=== PATIENT | male | born 1950 | race Caucasian/White ===

== ENCOUNTER 2023-10-17 08:58 | Day surgery (SDC) | payer MEDICARE, OTHER, SELFPAY ==
[2023-10-03 11:33] VITALS: BMI 26.6
--- NOTE | 2023-10-03 13:08 | HPS.HSE ---
Family Physician
-
Family Physician: INTERVIEWE UNKNOWN - PT NOT
Chief Complaint
-
Paroxysmal atrial fibrillation.
History of Present Illness
The patient is a 73 year old male presenting today for paroxysmal atrial fibrillation. The patient reports a history of jitteriness and palpitations over the last 2 years secondary to this diagnosis. His episodes of atrial fibrillation
often last minutes to hours and occasionally up to a day in duration. He is on current pharmacological therapy with Metoprolol Succinate. He has been compliant with Xarelto for oral anticoagulation due to a CHADS-VASc of 2. He is interested at this
time in pursuing pulmonary vein isolation for further arrhythmia management. He denies any current complaints today such as chest pain, shortness of breath, nausea, vomiting, diarrhea, lightheadedness, dizziness, cough, sore throat, or fever.
Medical History
Past Medical History
Past Medical History: Reports Other
Additional Past Medical History:
1. Paroxysmal atrial fibrillation, pharmacological therapy with Metoprolol Succinate and oral anticoagulation with Xarelto.
2. Hypertension.
3. Hyperlipidemia.
4. Sinus bradycardia, asymptomatic.
5. Colon polyps.
6. Probable proteinaceous/hemorrhagic cyst on chest CT 10/03/2023.
7. Lumbar stenosis with radiculopathy.
8. Infrequent tobacco abuse.
Past Surgical History: Reports Other
Additional Past Surgical History:
1. Left ACL repair.
2. Multiple right knee arthroscopies.
3. Colonoscopy.
Social History
Tobacco: Other (He reports, on average, smoking 2 cigars weekly. He denies any prior cigarette smoking history. )
Alcohol: Other (He drinks, on average, 8 light beers a week. )
Personal:
Living: Other (He lives in a 2 story home with his . )
Family History
Family History: Not pertinent
Allergies / Home Medications
Allergy/Medication List:
Home medications:
1. Hemp oil 1 unit p.o. daily.
2. Losartan-Hydrochlorothiazide 50-12.5 mg p.o. every evening.
3. Metoprolol Succinate 50 mg p.o. daily.
4. Multivitamin 1 tablet p.o. daily.
5. Xarelto 20 mg p.o. every evening.
6. Rosuvastatin 10 mg p.o. daily.
Allergies: Pollen. No known drug allergies.
Review of Systems
-
A 12 point ROS was completed and negative except as noted: Yes
Physical Exam
Vital Signs
Blood pressure 156/85. Heart rate 53. Respirations 18. Pulse ox 97% on room air.
Height 5 feet, 11 inches. Weight 86.4 kg. BMI 26.6.
Physical Exam
General: Well Developed, Well Nourished and No Apparent Distress
HEENT: NormoCephalic, Moist mucous membranes, Atraumatic and PERRLA
Respiratory: Clear
Cardiac: Bradycardia
GI: Soft, Non Tender and Non Distended
Musculoskeletal: Normal Gait & Station
Skin: Warm and Dry
Neuro: AO x 3 and Nonfocal/grossly intact
Laboratory Results
-
DIAGNOSTIC STUDIES as of 10/03/2023: White blood cell count 5.5. Hemoglobin 14.1. Platelet count 205,000. PT 16.8. INR 1.36. Sodium 139. Potassium 4.4. BUN 17. Creatinine 0.9. Glucose 93. Calcium 9.5. Magnesium 2.2. AST 45. ALT 38. Albumin 4.1. Type
and screen O positive.
EKG 10/03/2023: Sinus bradycardia. When compared to the EKG of February 16, 1995, no significant change was found.
Chest CT 10/03/2023: Short segment common vestibule for the left superior and inferior pulmonary veins, fairly commonly seen and considered normal variant. No evidence for left atrial thrombus. Partially visualized probable exophytic upper pole left
renal hypoattenuating lesion, possibly a proteinaceous/hemorrhagic cyst although indeterminate. Recommend initial further workup with dedicated renal ultrasound.
Echocardiogram 08/03/2021: Ejection fraction is 55-60%. Mild left ventricular hypertrophy. Mild aortic valve sclerosis without stenosis. Trace tricuspid regurgitation.
Impression/Plan
-
IMPRESSION/PLAN:
1. Paroxysmal atrial fibrillation: The patient is in need of pulmonary vein isolation with Dr. Sylvain Sagastume on 10/17/2023. The benefits and risks of the procedure have been explained to the patient. The patient understands these risks and wishes to
proceed. He will not be required to undergo a pre-procedural transesophageal echocardiogram as he has been compliant with his home oral anticoagulation. He is aware to hold his Xarelto the night prior to his procedure. He will not take any
medications the morning of his pulmonary vein isolation.
2. Probable proteinaceous/hemorrhagic cyst on chest CT 10/03/2023: Radiology recommends a dedicated renal ultrasound for further work-up. Result were relayed to the patient through phone call on 10/05/2023. Results will also be forwarded to his
primary care physician for further assessment and management.
[2023-10-17] VITALS (9 sets, daily range): BP systolic 107–161; BP diastolic 58–82
[2023-10-17] MEDS: NSS 500 IV (09:42)
--- NOTE | 2023-10-17 12:23 | ITS.CL.ABL ---
[employer] - Ablation
Ablation
Procedure Report:
Primary Security Dispatcher: Dennis Allen DO
Procedure Date: 10/17/2023
Patient History:
Patient is a pleasant 73 year old male with a history of hypertension, mixed dyslipidemia, tobacco use, and symptomatic paroxysmal atrial fibrillation.
See H&P for complete details.
Indication:
Symptomatic paroxysmal AF
Arrhythmia Specific History:
Prior Medical Therapies for Rate and Rhythm Control:
X Beta-ulices
[ ] Calcium channel-ulices
[ ] Amiodarone
[ ] Dronederone
[ ] Sotalol
[ ] Flecainide
[ ] Dofetilide
[ ] Options limited by bradycardia
[ ] Options limited by comorbid renal disease
Prior Procedural Therapies for AF/AFL:
[ ] Cardioversion
[ ] Pulmonary Vein Isolation
[ ] Posterior Wall Isolation
[ ] Additional lines (Specify)
[ ] Surgical Lewis-MAZE or PVI (Specify)
Procedure Performed:
X AF ablation procedure (66726) -- includes LA/CS pacing, trans-septal, 3D mapping, + ICE
[ ] +IV drug (66737)
[ ] +Other Arrhythmia (52974)
[ ] +Other AF Line/ablation (19001)
Risks and expected recovery has been explained in detail. Alternative options have been explored, and in a shared-decision making fashion we have decided that this was the most appropriate procedure.
Prior to procedure, patient had reported missed doses of anticoagulation leading to procedure, most recently at least the 2 days prior to procedure. Due to risk, patient underwent MADHURI prior to ablation procedure to rule out LAVERN thrombus. No evidence
of LA/LAVERN thrombus noted on MADHURI.
Method
NPO status confirmed. Grounding pad applied. Defibrillator pads applied. Continuous surface ECG, pulse oximetry, and blood pressure were monitored. Procedure was performed under general anesthesia, with anesthesia services.
Both groins were clipped, prepped with Chloraprep, and draped in sterile fashion. Time out was called. Local anesthesia administered with bupivacaine. The right and left femoral veins were accessed for catheter placement, using ultrasound guidance,
micro-puncture needle/wire, and modified seldinger technique. 3 sheaths were placed. The following catheters were used:
[ ] Tacticath SE (D/F Curve) ablation catheter
X Viewflex 9Fr ICE catheter
X Inquiry decapolar 6Fr diagnostic catheter
[ ] CRD Hex 6Fr
[ ] Arctic Front Advance Cryoballoon ([ ]28mm[ ]23mm)
[ ] Achieve Advance mapping catheter ([ ]15mm[ ]20mm)
X FlexCath Contour 12 Fr with PulseSelect PFA Catheter
X Advisor HD Grid Mapping Catheter, SE
[ ] Acuson AcuNav 8 Fr ICE catheter
[ ]Other: [ ]
Intracardiac ultrasound (ICE) was carefully advanced into the right atrium to guide sheath placement over a J-wire, catheter placement, guide trans-septal puncture, identify potential complications, identify anatomic structures and ensure proper
contact between ablation catheter and tissue.
Heparin was given prior to trans-septal puncture. Heparin was given to achieve and maintain a target ACT of 300-400 seconds throughout the procedure.
Trans-septal access was performed under ICE guidance. The trans-septal puncture was performed with a SafeSept wire through a Brockenbrough needle assembly through the steerable sheath. The wire was visualized as it entered the LSPV and system
advanced under ICE guidance and fluoroscopy into the LA. The Brockenbrough needle assembly, SafeSept wire and sheath dilator were removed under negative pressure. LA pressure was measured and recorded.
ICE and 3D mapping was performed to identify relevant cardiac structures. A careful 3D map was created to assess for regions of low-voltage and abnormal electrogram signals using HD grid mapping catheter and PulseSelect catheter. Additional mapping
was performed as outlined below.
Prior to ablation, glycopyrrolate was provided. PulseSelect catheter was advanced over J-wire to the ostium of each vein. Pulmonary vein isolation was performed with ostial and antral lesions in a circumferential manner. Contact was visualized via
EAM, ICE, fluoroscopy, and EGM signals. Following completion of ablation lesions, a post-ablation voltage/activation map was performed in sinus rhythm. Entrance and exit block were confirmed for each vein.
Catheter and sheath were removed from the left atrium and post-ablation intracardiac echo evaluation was consistent with pre-ablation with no changes and no pericardial effusion and there is no left atrial thrombus or left ventricle thrombus seen.
Electrophysiology study was performed. Hemostasis was obtained with Vascade for each sheath and with manual pressure. Protamine was used for reversal.
Estimated Blood Loss
5-10 mL
Complications
None
Fluoroscopy: 9.5 minutes; 29.3 mGy; DAP 3.65
Baseline Intervals:
Rhythm: SR
MS: 127 ms
QRS: 101 ms
QT: 393 ms
QTc: 433 ms
A-A: 823 ms
R-R: 823 ms
Post-Procedure Intervals:
MS: 180 ms
QRS: 106 ms
QT: 435 ms
QTc: 459 ms
AVWB: 320 ms
AERP: 600/230 ms
Recommendations
- Bedrest with straight-leg precautions as ordered
- Anticipate same day discharge if patient meeting clinical metrics
- Resume home medications as indicated
- Ok to resume anticoagulation tonight if patient and groin sites stable
- PPI daily for 30 days
- Uninterrupted OAC for 3 months post-procedure
- Plan for follow-up in office with Dr Allen
Sylvain Sagastume DO
Clinical Cardiac Machine Pan Greaser
cc: Dennis Allen DO
[2023-10-17 13:15] LABS: ACT-LR - POC 276 Seconds (116-155)
[2023-10-17 13:26] LABS: ACT-LR - POC 366 Seconds (116-155)
[2023-10-17 13:52] LABS: ACT-LR - POC 376 Seconds (116-155)
[2023-10-17 14:18] LABS: ACT-LR - POC 345 Seconds (116-155)
[2023-10-17 14:39] LABS: ACT-LR - POC 134 Seconds (116-155)
[2023-10-17] MEDS: TYLENOL 650 MG PO (15:33)
--- NOTE | 2023-10-17 16:49 | W.PN.UPDATE ---
Update Note
Progress Note Update
Pt seen post PVI. Bilat groin sites without ht/bleeding. OOB ambulating, urinating without difficulty. Post EKG NSR 60s, no acute changes. Resume Xarelto this evening. Followup with Dr. Allen arranged. Home today if groin sites/tele remain stable.
== END 2023-10-17 17:33 | disposition home or self-care (01) ==
LOC: CATH 08:58
PROVIDERS: ATTENDING PHYSICIAN Internal Medicine Cardiovascular Disease; FAMILY PHYSICIAN Family Medicine
DX: I48.0 Paroxysmal atrial fibrillation (principal); Z79.01 Long term (current) use of anticoagulants; I10 Essential (primary) hypertension; R00.1 Bradycardia, unspecified; Z87.19 Personal history of other diseases of the digestive system; F17.290 Nicotine dependence, other tobacco product, uncomplicated; M48.061 Spinal stenosis, lumbar region without neurogenic claudication; M54.16 Radiculopathy, lumbar region; E78.2 Mixed hyperlipidemia; Z79.899 Other long term (current) drug therapy
CPT/HCPCS: C1732; C1760; C1894; C1733; C1769; C1892; C1730; 76937; 85347; 93005; 93312; 93320; 93325; 93656